=== PATIENT | female | born 1970 | race Two or more races ===

== ENCOUNTER 2020-12-24 20:08 | Emergency (ER) | payer MEDICAID, OTHER ==
[~2020-12-24] VITALS: Ht 157.5 cm; Wt 45.4 kg
[2020-12-24] MEDS ORDERED: methylPREDNISolone SOD SUCC 125 MG/2 ML VL IV ONE (21:15)
[2020-12-24] MEDS ORDERED: diphenhdrAMINE HCL 50 MG/1 ML VL IV ONE (21:15)
[2020-12-24] MEDS ORDERED: GABAPENTIN 300 MG CAP PO ONE (22:45)
[2020-12-24] MEDS ORDERED: ONDANSETRON HCL 4 MG/2 ML VIAL IV ONE (22:45)
[2020-12-25 02:00] VITALS: BP 99/65
== END 2020-12-25 02:11 | disposition home or self-care (01) ==
LOC: ER 20:08
DX: T78.40XA Allergy, unspecified, initial encounter (principal); R20.2 Paresthesia of skin; X58.XXXA Exposure to other specified factors, initial encounter
CPT/HCPCS: 96374; 96375; 99285; J1200; J2405; J2930

== ENCOUNTER 2021-10-14 18:27 | Emergency (ER) | payer MEDICAID ==
[~2021-10-14] VITALS: Ht 157.5 cm; Wt 44.5 kg
[2021-10-14 18:28] VITALS: BP 98/59
== END 2021-10-15 01:35 | disposition left against medical advice (07) ==
LOC: ER 18:27
DX: H92.01 Otalgia, right ear (principal); Z53.21 Procedure and treatment not carried out due to patient leaving prior to being seen by health care provider

== ENCOUNTER 2022-01-21 00:58 | Emergency (ER) | payer MEDICAID ==
[~2022-01-21] VITALS: Ht 157.5 cm; Wt 45.4 kg
[2022-01-21 00:58] VITALS: BP 105/71
== END 2022-01-21 02:58 | disposition left against medical advice (07) ==
LOC: ER 00:58
DX: L03.011 Cellulitis of right finger (principal); Z53.21 Procedure and treatment not carried out due to patient leaving prior to being seen by health care provider

== ENCOUNTER 2022-01-22 12:47 | Emergency (ER) | payer MEDICAID ==
[~2022-01-22] VITALS: Ht 157.5 cm; Wt 45.4 kg
[2022-01-22 12:48] VITALS: BP 97/69
== END 2022-01-22 17:10 | disposition left against medical advice (07) ==
LOC: ER 12:47
DX: M79.644 Pain in right finger(s) (principal); Z53.21 Procedure and treatment not carried out due to patient leaving prior to being seen by health care provider